=== PATIENT | male | born 1955 | race Two or more races ===

== ENCOUNTER 2019-12-13 09:42 | Outpatient (CLI) | payer MEDICARE, OTHER | END 2019-12-13 23:59 | disposition home or self-care (01) | LOC: CARD 09:42 | PROVIDERS: ATTEND Internal Medicine Interventional Cardiology | DX: I70.201 Unspecified atherosclerosis of native arteries of extremities, right leg (principal); I73.9 Peripheral vascular disease, unspecified ==

== ENCOUNTER 2019-12-27 08:40 | Outpatient (CLI) | payer MEDICARE, OTHER | END 2019-12-27 23:59 | disposition home or self-care (01) | LOC: LAB 08:40 | PROVIDERS: ATTEND Internal Medicine Interventional Cardiology | DX: Z01.812 Encounter for preprocedural laboratory examination (principal); Z11.59 Encounter for screening for other viral diseases ==